=== PATIENT | female | born 1955 | race African-American/Black ===

== ENCOUNTER 2016-11-21 12:16 | Emergency (ER) | payer OTHER ==
[~2016-11-21] VITALS: Ht 175.3 cm; Wt 90.7 kg
[2016-11-21] MEDS ORDERED: IBUPROFEN600 MG ORAL (13:19)
[2016-11-21] MEDS ORDERED: TRAMADOL HCL50 MG ORAL (13:19)
[2016-11-21 13:20] VITALS: BP 133/89
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
== END 2016-11-21 13:20 | disposition home or self-care (01) ==
LOC: EDBD 12:16 → EMR 12:40
DX: S82.001A Unspecified fracture of right patella, initial encounter for closed fracture (principal); V09.9XXA Pedestrian injured in unspecified transport accident, initial encounter; Y93.01 Activity, walking, marching and hiking; Y92.89 Other specified places as the place of occurrence of the external cause; Z88.0 Allergy status to penicillin; M17.11 Unilateral primary osteoarthritis, right knee
CPT/HCPCS: 29530; 99284